=== PATIENT | female | born 1950 | race Caucasian/White ===

== ENCOUNTER 2020-03-04 14:19 | Outpatient (CLI) | payer MEDICARE, OTHER, SELFPAY ==
--- NOTE | ~2020-03-04 | MM_ITS ---
EXAMINATION: MM screening [facility] BI w she HISTORY: Screening mammogram TECHNIQUE: Craniocaudal and mediolateral oblique 3-D tomosynthesis images were obtained and synthetic 2-D images were generated. CAD analysis was submitted and interpreted. COMPARISON: 05/27/2015 bilateral digital screening mammogram BREAST PARENCHYMAL COMPOSITION: There are scattered areas of fibroglandular density. FINDINGS: There is no evidence of suspicious mass, calcification, or architectural distortion to sugg est malignancy in either breast. There has been no suspicious interval change. IMPRESSION: 1. No mammographic evidence of malignancy. 2. Recommend routine screening mammography in one year. BI-RADS Category 1: Negative Reviewed, dictated and finalized at location A.
== END 2020-03-04 14:20 | disposition home or self-care (01) ==
LOC: ANHIMG 14:36
DX: Z12.31 Encounter for screening mammogram for malignant neoplasm of breast (principal)
CPT/HCPCS: 77063; 77067

== ENCOUNTER 2021-03-10 16:28 | Outpatient (CLI) | payer MEDICARE, OTHER, SELFPAY ==
--- NOTE | ~2021-03-10 | MM_ITS ---
EXAMINATION: MM screening [facility] BI w she HISTORY: Screening TECHNIQUE: Craniocaudal and mediolateral oblique 3-D tomosynthesis images were obtained and synthetic 2-D images were generated. CAD analysis was submitted and interpreted. COMPARISON: Comparison to multiple prior studies sequentially, with oldest reviewed study dated 05/09. BREAST PARENCHYMAL COMPOSITION: There are scattered areas of fibroglandular density. FINDINGS: There is no evidence of suspicious mass, calcification, or architectural distortion to sugg est malignancy in either breast. There has been no suspicious interval change. IMPRESSION: 1. No mammographic evidence of malignancy. 2. Recommend routine screening mammography in one year. BI-RADS Category 1: Negative Reviewed, dictated and finalized at location A.
== END 2021-03-10 16:29 | disposition home or self-care (01) ==
LOC: ANHIMG 16:40
DX: Z12.31 Encounter for screening mammogram for malignant neoplasm of breast (principal)
CPT/HCPCS: 77063; 77067

== ENCOUNTER → 2022-04-14 14:51 | Outpatient (CLI) | payer MEDICARE, OTHER, SELFPAY ==
--- NOTE | ~2022-04-14 | MM_ITS ---
EXAMINATION: MM screening [facility] BI w she HISTORY: Screening mammogram TECHNIQUE: Craniocaudal and mediolateral oblique 3-D tomosynthesis images were obtained and synthetic 2-D images were generated. CAD analysis was submitted and interpreted. COMPARISON: 03/10/2021, 03/04/2020, 05/27/2015 bilateral screening mammogram examinations BREAST PARENCHYMAL COMPOSITION: There are scattered areas of fibroglandular density. FINDINGS: There is no evidence of suspicious mass, calcification, or architectural distortion to sugg est malignancy in either breast. There has been no suspicious interval change. IMPRESSION: 1. No mammographic evidence of malignancy. 2. Recommend routine screening mammography in one year. BI-RADS Category 1: Negative Reviewed, dictated and finalized at location A.
== END ==
DX: Z12.31 Encounter for screening mammogram for malignant neoplasm of breast (principal)
CPT/HCPCS: 77063; 77067

== ENCOUNTER 2022-11-09 09:21 | Inpatient (IN) | payer MEDICARE, OTHER, SELFPAY ==
[2022-11-09] VITALS (25 sets, daily range): BP systolic 140–167; BP diastolic 66–95; PULSE 63–114; RESP 5–20; TEMP 36.5–37.1; O2SAT 95–100; BMI 30.6
--- NOTE | ~2022-11-09 | XR_ITS ---
EXAMINATION: XR chest 2V DATE: 11/09/2022 10:13 INDICATION: Shortness of breath TECHNIQUE: PA and lateral views of the chest are obtained. COMPARISON: None available FINDINGS: The lungs are free of acute opacities. No pleural effusion or pneumothorax. The cardiomedia stinal silhouette is normal. There is moderate thoracic spondylosis. IMPRESSION: 1. No acute cardiopulmonary abnormality. Reviewed, dictated and finalized at location L.
--- NOTE | ~2022-11-09 | US_ITS ---
EXAMINATION: US venous doppler [facility] DATE: 11/09/2022 14:31 INDICATION: Right lower limb pain TECHNIQUE: Maxwell scale images without and with compression and Doppler images of the right lower extre mity veins were obtained. COMPARISON: None FINDINGS: The right common femoral vein, profunda femoral vein, femoral vein, popliteal vein, peronea l trunk, posterior tibial veins are patent. There is superficial venous thrombosis in the greater sap henous vein IMPRESSION: 1. Superficial venous thrombosis in the greater saphenous vein. No evidence of deep venous thrombosis . Reviewed, dictated and finalized at location L. IMPRESSION: 1. Superficial venous thrombosis in the greater saphenous vein. No evidence of deep venous thrombosis.
--- NOTE | ~2022-11-09 | CT_ITS ---
EXAMINATION: CTA chest PE protocol DATE: 11/09/2022 13:51 INDICATION: Left chest pain. Shortness of breath. TECHNIQUE: Computed tomography angiography (CTA) of the chest was performed with 100 mL Omnipaque-350 intravenous contrast timed to evaluate the pulmonary arteries. Coronal maximum intensity projection 3D-reconstructions were created by the technologist. Automated exposure control and iterative reconst ruction technique were employed. The dose-length product was 321.81 mGy-cm. COMPARISON: Chest 2 views 11/09/2022 FINDINGS: There is mild atelectasis bilaterally. No pleural effusion. The heart size is normal. No pe ricardial effusion. There are coronary artery calcifications. There is an acute pulmonary embolus in anterior segment left upper lobe. There are cysts in the liver measuring up to 3.8 cm. There is a gal lstone in the gallbladder. The gallbladder is distended. There is mild chronic anterior wedging of mu ltiple vertebral bodies. There are bridging endplate osteophytes at multiple levels in the spine, con sistent with diffuse idiopathic skeletal hyperostosis (DISH). IMPRESSION: 1. Acute pulmonary embolus in anterior segment left upper lobe. I called this result to Jackie osullivan. 2. Cholelithiasis. Gallbladder distention may be secondary to fasting or acute cholecystitis. Correla te with physical exam. Reviewed, dictated and finalized at location A. IMPRESSION: 1. Acute pulmonary embolus in anterior segment left upper lobe. I called this r esult to Jackie Barron. 2. Cholelithiasis. Gallbladder distention may be secondary to fasting or acute cholecystitis. Correlate with physical exam.
--- NOTE | 2022-11-09 09:33 | ECG_ITS ---
Measurements Intervals [place] Rate: 123 P: 157 IL: 108 QRS: -17 QRSD: 126 T: 79 QT: 346 QTc: 495 Interpretive Statements SINUS TACHYCARDIA WITH SHORT IL INTERVAL LEFT BUNDLE BRANCH BLOCK [120+ ms QRS DURATION, 80+ ms Q/S IN V1/V2, 85+ ms R IN I/aVL/V5/V6] NO PREVIOUS ECG AVAILABLE FOR COMPARISON Electronically Signed On 11-09-2022 16:05:01 CDT by Claire Mullins M.D.
--- NOTE | 2022-11-09 11:18 | ED.SOB ---
HPI - SOB/Dyspnea General Chief Complaint: Shortness of Breath/Dyspnea <Jackie Barron PA-C - Last Filed: 11/09/22 17:17> Stated Complaint: chest pain <JULIANNA Garcia Last Filed: 11/09/22 17:17> Time Seen by Provider: 11/09/22 11:15 <JULIANNA Garcia Last Filed: 11/09/22 17:17> Source: patient <JULIANNA Garcia Last Filed: 11/09/22 17:17> Mode of arrival: ambulatory <JULIANNA Garcia Last Filed: 11/09/22 17:17> Limitations: no limitations <JULIANNA Garcia Last Filed: 11/09/22 17:17> History of Present Illness HPI Narrative: Patient is a 72-year-old female who presents the ED with complaints of left sided chest pain. Patient reports she flew to and from [place] in the middle of October. She was diagnosed with COVID 19 upon returning from the trip. She developed pain and swelling in her left calf region afterwards and was diagnosed with superficial thrombophlebitis via US. She continued to have worsening pain and eventually worsening superficial thrombosis. She was placed on Xarelto approximately a week and a half ago. Today, patient reports she was walking outside when she suddenly developed pain in her left lower chest. She states it feels almost below her left breast. Pain constant and worse with deep breathing. She does feel mildly short of breath. She states she was told to return to the ED if she ever experience chest pain or difficulty breathing. Patient denies any recent fevers, cough, cold symptoms, abdominal pain, nausea, vomiting. Patient mentions a Hx of dvt after surgery several years ago and was on anticoagulation for 6 months at that time. She notes a FHx of blood clots as well. <JULIANNA Garcia Last Filed: 11/09/22 17:17> Related Data Home Medications: Home Medications Medication Instructions Recorded Confirmed amlodipine 5 mg tablet 5 mg PO HS 01/19/21 11/09/22 aspirin 81 mg tablet,delayed 81 mg PO DAILY 01/19/21 11/09/22 release atorvastatin 40 mg tablet (Lipitor) 40 mg PO HS 01/19/21 11/09/22 cinnamon bark 500 mg capsule 500 mg PO DAILY 01/19/21 11/09/22 coenzyme [id number] 100 mg-100 1 cap PO HS 01/19/21 11/09/22 unit capsule ezetimibe 10 mg tablet (Zetia) 10 mg PO HS 01/19/21 11/09/22 lisinopril 2.5 mg tablet 2.5 mg PO DAILY 01/19/21 11/09/22 multivitamin 1 tablet PO DAILY 01/19/21 11/09/22 terbinafine HCl 250 mg tablet 250 mg PO DAILY 01/19/21 11/09/22 cholecalciferol (vitamin D3) 125 125 mcg PO DAILY 12/07/21 11/09/22 mcg (5,000 unit) tablet cholecalciferol (vitamin D3) 25 25 mcg PO DAILY 12/07/21 11/09/22 mcg (1,000 unit) capsule tumeric 100 mg-roshan 150 mg-olive 1 cap PO Q12H 12/07/21 11/09/22 50 mg-oreg 150 mg-caprylate capsule <JULIANNA Garcia Last Filed: 11/09/22 17:17> Allergies/Adverse Reactions: Allergies Allergy/AdvReac Type Severity Reaction Status Date / Time No Known Allergies Allergy Verified 11/09/22 12:10 <JULIANNA Garcia Last Filed: 11/09/22 17:17> Review of Systems Review of Systems: CONSTITUTIONAL: Denies fever, chills, or sweats. ENT: Denies rhinorrhea, congestion, sore throat. CARDIOVASCULAR: See HPI. RESPIRATORY: See HPI. GASTROINTESTINAL: Denies abdominal pain, nausea, vomiting, or diarrhea. GENITOURINARY: Denies dysuria or hematuria. SKIN: Denies rash or itching. MUSCULOSKELETAL: See HPI. NEUROLOGIC: Denies headache, numbness, or weakness. <JULIANNA Garcia Last Filed: 11/09/22 17:17> All systems reviewed & are unremarkable except as noted in HPI and below <JULIANNA Garcia Filed: 11/09/22 17:17> [facility] Past Medical History Medical History: Medical History (Updated 11/09/22 @ 17:25 by Tawny Zazueta NP) Abnormality of heart beat left bbb Arthritis DVT (deep venous thrombosis) Effusion of knee Effusion, left knee High cholesterol History of intraoper
[2022-11-09 11:50] LABS: Basophils Percent Auto 0.7 % (0.2-1.2); Eosinophils Percent Auto 0.7 % (0-4.4); Hematocrit 38.8 % (37.0-47.0); Hemoglobin 13.1 g/dL (12.0-15.0); Immature Granulocyte Absolute 0.01 K/mm3 (0.00-0.031); Immature Granulocyte Percent A 0.2 % (0-0.5); Lymphocytes Absolute Auto 1.55 K/mm3 (0.9-3.2); Lymphocytes Percent Auto 28.5 % (18.3-44.2); Mean Corpuscular HGB Conc 33.8 g/dl (32-36); Mean Corpuscular Hemoglobin 31.2 pg (26-34); Mean Corpuscular Volume 92.4 fl (80-100); Mean Platelet Volume 9.7 fl (7.4-10.4); Monocytes Absolute Auto 0.6 K/mm3 (0.1-0.6); Neutrophils Absolute Auto 3.2 K/mm3 (1.3-6.7); Neutrophils Percent Auto 58.9 % (45.5-73.1); Platelet Count Result 329 k/mm3 (150-375); White Blood Count 5.4 K/mm3 (4.5-10.0)
[2022-11-09 12:00] LABS: INR 1.1; Prothrombin Time 13.7 Seconds (11.1-14.7)
[2022-11-09 12:01] LABS: Partial Thromboplastin Time 29.1 SECONDS (22.3-36.8)
[2022-11-09 12:02] LABS: Alanine Aminotransferase 20 U/L (6-35); Albumin Level 4.3 g/dL (3.5-5.1); Alkaline Phosphatase 78 U/L (38-126); Anion Gap 6 mmol/L (8-16); Aspartate Amino Transferase 25 U/L (14-36); Bilirubin,Total 0.6 mg/dL (0.2-1.3); Blood Urea Nitrogen 10 mg/dL (7-17); Calcium 9.2 mg/dL (8.4-10.2); Carbon Dioxide 27 mmol/L (22-30); Chloride 105 mmol/L (98-107); Estimated Glomerular Filt Rate > 60; Glucose 120 mg/dL (65-110); Potassium 3.6 mmol/L (3.4-5.0); Sodium 138 mmol/L (137-145)
[2022-11-09 12:13] LABS: Troponin I < 0.012 ng/mL (0.000-0.034)
[2022-11-09 15:41] LABS: Troponin I < 0.012 ng/mL (0.000-0.034)
[2022-11-09] MEDS: HEPARIN SODIUM 5,000 UNITS/ML VIAL 6000 UNITS IV PUSH (15:58)
[2022-11-09] MEDS: HEPARIN SOD/D5W 100 UNITS/ML 25,000 UNITS/250 ML BAG 14 UNITS IV CONT (16:00)
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
--- NOTE | 2022-11-09 18:00 | ADMGEN ---
This patient, Chelsea Azevedo, was admitted to Intensive Care Unit-1. Patient/family oriented to hospital policies and general routines including ID bracelet, bed and alarms, visiting hours, pain management, procedures, bathroom and other care routines, personal items, smoking policy, room service/diet, and visiting hours. Information on how to activate the Rapid Response Team has been discussed. Patient/Family are encouraged to report perceived risks to care and to ask questions if they do not understand what they are told or what they should do.
[2022-11-09 19:12] LABS: Troponin I < 0.012 ng/mL (0.000-0.034)
[2022-11-09] MEDS: EZETIMIBE 10 MG TABLET PO (21:26)
[2022-11-09] MEDS: ATORVASTATIN 40 MG TABLET PO (21:26)
[2022-11-09] MEDS: amLODIPine BESYLATE 5 MG TABLET PO (21:26)
[2022-11-10] VITALS (8 sets, daily range): BP systolic 126–147; BP diastolic 66–78; PULSE 62–122; RESP 14–18; TEMP 36.6–37.1; O2SAT 91–99
--- NOTE | 2022-11-10 | ECHO_ITS ---
Patient Info Name: Chelsea Azevedo Age: 72 years : 1950 Gender: Female Ht: 68 in Wt: 206 lbs BSA: 2.15 m2 HR: 64 bpm BP: 140 / 66 mmHg Heart Rhythm: Sinus Rhythm Technical Quality: Fair Exam Date: 11/10/2022 7:41 AM Exam Location: [facility] Pulmonary Patient Status: Inpatient Admit Date: 11/10/2022 Staff Ordering Physician: Tawny Zazueta NP Manager Grant: Iona Banda RDCS Attending Provider: Rachelle Lee MD Referring Physician: Marbin STARR; Exam Type: CA echo dop color flow w con Study Info Indications - PE Complete two-dimensional, color flow and Doppler transthoracic echocardiogram is performed with contrast to opacify the left ventricle and to improve the deliniation of the left ventricle endocardial borders. Contrast/Agitated Saline Contrast/Ag. Saline: Definity Amount: 3.00 ml Administered By: Iona Banda RDCS Existing IV Access: Yes IV Access Condition: patent with no signs of infiltration Summary 1. Left ventricular chamber dimension is normal. 2. Left ventricular systolic function is normal, estimated at 55-60%. 3. There is mildly increased left ventricular wall thickness. 4. Left ventricular septal wall motion is abnormal with septal motion related to bundle branch block. 5. The left ventricular diastolic function is grade I diastolic dysfunction. 6. Left atrial chamber dimension is mildly enlarged. 7. There is mild mitral valve regurgitation. 8. There is mild tricuspid valve regurgitation. 9. There is mild pulmonic regurgitation. Left Ventricle Left ventricular chamber dimension is normal. Left ventricular systolic function is normal, estimated at 55-60%. There is mildly increased left ventricular wall thickness. Left ventricular septal wall motion is abnormal with septal motion related to bundle branch block. The left ventricular diastolic function is grade I diastolic dysfunction. Right Ventricle Right ventricular chamber dimension is normal. Right ventricular systolic function is normal. Left Atria Left atrial chamber dimension is mildly enlarged. Right Atria Right atrial chamber dimension is normal. Atrial Septum Intact interatrial septum visualized by color flow imaging. Aortic Valve The aortic valve is trileaflet. There is mild aortic valve sclerosis. There is no aortic valve stenosis. There is trace aortic valve regurgitation. Pulmonic Valve The pulmonic valve is normal. There is no pulmonic valve stenosis. There is mild pulmonic regurgitation. Mitral Valve The mitral valve has normal leaflets. There is no mitral valve stenosis. There is mild mitral valve regurgitation. Tricuspid Valve The tricuspid valve leaflets are normal. There is no significant tricuspid valve stenosis. There is mild tricuspid valve regurgitation. No pulmonary hypertension, estimated pulmonary arterial systolic pressure is 34 mmHg. Pericardium/Pleural The pericardium appears normal. There is trivial pericardial effusion. Inferior Vena Cava Normal inferior vena cava with >50% collapse upon inspiration consistent with normal right atrial pressure, 10 mmHg. Aorta The aortic root size at the sinus of Valsalva is normal. The prox ascending aorta size is normal. Left Ventricular Outflow Tract Name Value Normal
[2022-11-10 04:36] LABS: Basophils Percent Auto 0.5 % (0.2-1.2); Eosinophils Absolute Auto 0.1 K/mm3 (0-0.3); Eosinophils Percent Auto 1.2 % (0-4.4); Hematocrit 38.9 % (37.0-47.0); Hemoglobin 13.2 g/dL (12.0-15.0); Immature Granulocyte Absolute 0.02 K/mm3 (0.00-0.031); Immature Granulocyte Percent A 0.3 % (0-0.5); Lymphocytes Absolute Auto 1.97 K/mm3 (0.9-3.2); Lymphocytes Percent Auto 34.4 % (18.3-44.2); Mean Corpuscular HGB Conc 33.9 g/dl (32-36); Mean Corpuscular Hemoglobin 31.8 pg (26-34); Mean Corpuscular Volume 93.7 fl (80-100); Mean Platelet Volume 9.5 fl (7.4-10.4); Monocytes Absolute Auto 0.7 K/mm3 (0.1-0.6); Monocytes Percent Auto 12.9 % (2.6-8.5); Neutrophils Absolute Auto 2.9 K/mm3 (1.3-6.7); Neutrophils Percent Auto 50.7 % (45.5-73.1); Platelet Count Result 317 k/mm3 (150-375); Red Blood Count 4.15 M/mm3 (4.2-5.4); Red Cell Distribution Width 12.3 % (11.5-14.5); White Blood Count 5.7 K/mm3 (4.5-10.0)
[2022-11-10 04:46] LABS: Alanine Aminotransferase 19 U/L (6-35); Alkaline Phosphatase 70 U/L (38-126); Anion Gap 3 mmol/L (8-16); Aspartate Amino Transferase 23 U/L (14-36); Bilirubin,Total 0.6 mg/dL (0.2-1.3); Blood Urea Nitrogen 10 mg/dL (7-17); Calcium 8.7 mg/dL (8.4-10.2); Carbon Dioxide 31 mmol/L (22-30); Chloride 104 mmol/L (98-107); Estimated CRCL calculation 102 ml/min; Estimated Glomerular Filt Rate > 60; Glucose 135 mg/dL (65-110); Magnesium 2.2 mg/dL (1.6-2.3); Potassium 3.5 mmol/L (3.4-5.0); Sodium 138 mmol/L (137-145)
[2022-11-10 04:47] LABS: Partial Thromboplastin Time 74.9 SECONDS (22.3-36.8)
[2022-11-10 04:52] LABS: Lactic Acid Reflex 0.7 mmol/L (0.7-2.0)
[2022-11-10 05:55] LABS: Thyroid Stimulating Hormone Reflex 0.881 uIU/mL (0.465-4.68)
[2022-11-10] MEDS: PERFLUTREN LIPID MICROSPHERES 1.5 ML VIAL DILUTED TO 10 ML TOTAL VOLUME IV PUSH (08:15)
[2022-11-10] MEDS: lisinopriL 2.5 MG TABLET PO (09:08)
[2022-11-10] MEDS: CHOLECALCIFEROL 1,000 UNITS TABLET 1000 UNITS PO (09:08)
[2022-11-10] MEDS: MULTIVITAMINS THERAPEUTIC TAB (*BKC) 1 TABLET PO (09:08)
[2022-11-10] MEDS: TERBINAFINE HCL 250 MG TABLET PO (09:08)
--- NOTE | 2022-11-10 09:39 | PC.NURSE ---
Pt reports aspirin was stopped a week and a half ago. Dr. Duque made aware. Aspirin stopped.
[2022-11-10 11:10] LABS: Partial Thromboplastin Time 28.6 SECONDS (22.3-36.8)
--- NOTE | 2022-11-10 11:12 | IVDEFINITY ---
Prior to administration of IV Definity the patient was educated on the risks and benefits of the imaging enhancing agent including potential adverse side effects. The patient verbalized understanding. Allergies were verified. No exclusion criteria were identified and at least one of the following inclusion criteria were met: 1) physician request, 2) patient technically difficult to image (per the [place] [employer]chocardi[employer] guidelines of two or more segments not discernable within the apical view), or 3) questionable left ventricular function. ?
--- NOTE | 2022-11-25 07:26 | PM.DS ---
DS: Admitting Diagnosis Discharge Date 11/10/22 Admitting Diagnosis PE DS: Discharge Diagnosis Discharge Diagnosis (1) Pulmonary embolism: Qualifiers: Acute cor pulmonale presence: without acute cor pulmonale Chronicity: acute Pulmonary embolism type: unspecified Qualified Code(s): I26.99 - Other pulmonary embolism without acute cor pulmonale Code(s): I26.99 - Other pulmonary embolism without acute cor pulmonale Status: Acute Assessment and Plan: The patient is currently on a heparin drip. The patient had been on Xarelto for her superficial venous thrombosis in her legs. Patient's repeat ultrasound shows superficial venous thrombosis Hematology has been consulted. An echo has been ordered. (2) Superficial thrombophlebitis of right leg: Code(s): I80.01 - Phlebitis and thrombophlebitis of superficial vessels of right lower extremity Status: Acute Assessment and Plan: The patient previously was started on Xarelto and and only been on it again have when she developed a PE. The patient is currently on a heparin drip. (3) Hypertension: Code(s): I10 - Essential (primary) hypertension Status: Acute Assessment and Plan: Continue with amlodipine Continue with lisinopril (4) High cholesterol: Code(s): E78.00 - Pure hypercholesterolemia, unspecified Status: Acute Assessment and Plan: Continue with atorvastatin and Zetia DS: Summary Hospital Course Hospital Course: Patient was admitted for PE, this is likely related to her prior event a week or 2 ago. Will resume her anticoagulation she can be discharged. From a cardiorespiratory standpoint she is otherwise stable Time Spent with Patient Time attestation: Total time spent providing and/or coordinating discharge services: Exam Const: General: cooperative, healthy appearing, comfortable, no acute distress, well developed, awake, Physically active, average body habitus and well nourished Nutritional Appearance: average body habitus and well nourished Orientation/consciousness: oriented to person, oriented to place, oriented to time and patient oriented x3 Limitations: no limitations HENMT: Head: normal to inspection, No palpable skull fracture present, normocephalic and atraumatic Ears: hearing grossly normal bilaterally and external ears normal Face/Nose/Sinus: Normal external nose present and Normal nares present Eyes: General: appearance normal, both eyes and all related structures Alignment and Position: alignment normal Periorbital: periorbital findings normal Eyelids: eyelids normal Sclera: sclerae normal Pupils: Equal, round and reactive pupils present EOM: EOMs intact bilaterally Neck: Neck: normal visual inspection, full ROM, no lymphadenopathy, trachea midline and supple Chest: Chest palpation & inspection: normal inspection of the chest Resp: Effort & Inspection: normal respiratory effort Auscultation: clear to auscultation bilaterally Cardio: Palpation: normal PMI Rate: tachycardic Rhythm: regular rhythm Heart sounds: S1 normal heart sound present and S2 normal heart sound present Peripheral pulses: Peripheral pulses 2+ throughout GI: Inspection: normal to inspection Auscultation: normal bowel sounds Rectal Exam: deferred Back/Spine/Pelvis: Cervical Spine: cervical ROM normal Skin: General skin exam: normal color Lesions: no lesions Rashes: no rashes Trauma: no lacerations or abrasions Wounds: no wounds Hair: normal Nails: normal Neuro: General: oriented to person, oriented to place, oriented to time and patient oriented x3 Cranial nerves: Yes Equal, round and reactive pupils present and Yes Normal hearing present Cognition (Neuro): normal cognition Speech: normal speech Gait exam (Neuro): Normal gait present Motor exam (neuro): 5/5 motor strength present throughout Sensory Exam: normal sensation Extrem: General: normal to inspection Right upper extremi
== END 2022-11-10 15:00 | disposition home or self-care (01) | DRG 176 ==
LOC: ANHED 11:44 → ANHICU 16:38
PROVIDERS: General Practice; Internal Medicine; Nurse Practitioner; Admitting Provider Internal Medicine; Emergency Provider Physician Assistant; Visit Provider Chiropractor
DX: I26.99 Other pulmonary embolism without acute cor pulmonale (principal); I80.01 Phlebitis and thrombophlebitis of superficial vessels of right lower extremity; I10 Essential (primary) hypertension; E78.00 Pure hypercholesterolemia, unspecified; M19.90 Unspecified osteoarthritis, unspecified site; I44.7 Left bundle-branch block, unspecified; Z86.16 Personal history of COVID-19; Z79.82 Long term (current) use of aspirin; Z90.710 Acquired absence of both cervix and uterus; Z90.722 Acquired absence of ovaries, bilateral
CPT/HCPCS: 36415; 71046; 71275; 80053; 83605; 83735; 84443; 84484; 85025; 85610; 85730; 93005; 93970; 96374; 99285; A9270; C8929; G0378; J1644; Q9957; Q9967

== ENCOUNTER 2022-11-29 18:08 | Emergency (ER) | payer MEDICARE, OTHER, SELFPAY ==
--- NOTE | ~2022-11-29 | XR_ITS ---
EXAM: XR knee RT min 4V DATE: 11/29/2022 19:25 HISTORY: pain TO POSTERIOR KNEE . COMPARISON: 09/23/2022, 09/07/2021. FINDINGS: Normal mineralization. No fracture or dislocation. No lytic or blastic lesion. Tricompartm ental osteoarthritis, severe in the medial compartment. No erosion or periosteal change. Soft tissues within normal limits. Moderate volume joint fluid. IMPRESSION: No acute osseous finding in the right knee. Moderate right knee joint effusion. Reviewed, dictated and finalized at location K. IMPRESSION: No acute osseous finding in the right knee. Moderate right knee gilmra nt effusion.
[2022-11-29 18:10] VITALS: BP 142/87; PULSE 112; RESP 18; TEMP 36.3; O2SAT 98
--- NOTE | 2022-11-29 19:10 | ED.EXTPRO ---
HPI - Extremity Problem General Chief complaint: Extremity Problem,Nontraumatic Stated complaint: pain behind right knee- hx of blood clots Time Seen by Provider: 11/29/22 19:00 Source: patient and RN notes reviewed Mode of arrival: ambulatory Limitations: no limitations History of Present Illness HPI Narrative: This is a 72 year old female with recent diagnosis of Pulmonary emboli and superficial thrombophlebitis 20 days ago who presents for evaluation of right knee pain. Patient reports she noticed pain behind her right knee since Tuesday. She reports she has been trying to walk 3045 minutes a day since her PE diagnosis. Her daughter noticed her limping on due to aching pain in right leg. She reports pain seems to be located more behind her right knee. She states today she felt behind her knee today and she felt squishy swollen area behing her knee. She denies any injury. She denies any pain. She denies chest pain or shortness of breath. she has been taking Xarelto 15 mg BID since her diagnosis. Related Data Home Medications Medication Instructions Recorded Confirmed amlodipine 5 mg tablet 5 mg PO HS 01/19/21 11/09/22 aspirin 81 mg tablet,delayed 81 mg PO DAILY 01/19/21 11/09/22 release atorvastatin 40 mg tablet (Lipitor) 40 mg PO HS 01/19/21 11/09/22 cinnamon bark 500 mg capsule 500 mg PO DAILY 01/19/21 11/09/22 coenzyme [id number] E 100 mg-100 1 cap PO HS 01/19/21 11/09/22 unit capsule ezetimibe 10 mg tablet (Zetia) 10 mg PO HS 01/19/21 11/09/22 lisinopril 2.5 mg tablet 2.5 mg PO DAILY 01/19/21 11/09/22 multivitamin 1 tablet PO DAILY 01/19/21 11/09/22 terbinafine HCl 250 mg tablet 250 mg PO DAILY 01/19/21 11/09/22 cholecalciferol (vitamin D3) 125 125 mcg PO DAILY 12/07/21 11/09/22 mcg (5,000 unit) tablet cholecalciferol (vitamin D3) 25 25 mcg PO DAILY 12/07/21 11/09/22 mcg (1,000 unit) capsule tumeric 100 mg-roshan 150 mg-olive 1 cap PO Q12H 12/07/21 11/09/22 50 mg-oreg 150 mg-caprylate capsule Allergies Allergy/AdvReac Type Severity Reaction Status Date / Time No Known Allergies Allergy Verified 11/29/22 18:57 Review of Systems Constitutional: Constitutional: Denies weakness Cardiovascular: Cardiovascular: Denies syncope, Denies rapid heart rate, Denies irregular heart rhythm, Denies leg edema and Denies dyspnea Respiratory: Respiratory: Denies chest congestion, Denies hemoptysis, Denies excessive phlegm production and Denies dyspnea Gastrointestinal: Gastrointestinal: Denies abdominal pain, Denies hematochezia, Denies diarrhea and Denies vomiting Genitourinary: Genitourinary: Denies hematuria and Denies dysuria Musculoskeletal: Musculoskeletal: Denies joint swelling, Denies loss of height and Denies muscle weakness Neurologic: Denies syncope, Denies focal weakness and Denies weakness PMFSH Past Medical History Medical History Abnormality of heart beat left bbb Arthritis DVT (deep venous thrombosis) Effusion of knee Effusion, left knee High cholesterol History of intraoperative complication of surgical procedure Hypertension LBBB (left bundle branch block) Left knee DJD Left knee pain Right knee DJD Surgical History Surgical History H/O tubal ligation History of bilateral oophorectomies History of radical hysterectomy Family History Family History Father Pulmonary emboli Sibling Pulmonary emboli Sibling High cholesterol Pulmonary emboli Other Arthritis Family history of cardiovascular disease Hypertension Social History Social History Social History: The patient has 2 children and lives with her . 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
[2022-11-29 19:35] VITALS: BP 135/92; PULSE 118; RESP 16; O2SAT 99
[2022-11-29 19:43] LABS: Basophils Percent Auto 0.7 % (0.2-1.2); Eosinophils Absolute Auto 0.1 K/mm3 (0-0.3); Eosinophils Percent Auto 1.5 % (0-4.4); Hematocrit 39.6 % (37.0-47.0); Hemoglobin 13.2 g/dL (12.0-15.0); Immature Granulocyte Absolute 0.02 K/mm3 (0.00-0.031); Immature Granulocyte Percent A 0.3 % (0-0.5); Lymphocytes Absolute Auto 1.98 K/mm3 (0.9-3.2); Lymphocytes Percent Auto 32.4 % (18.3-44.2); Mean Corpuscular HGB Conc 33.3 g/dl (32-36); Mean Corpuscular Hemoglobin 31.1 pg (26-34); Mean Corpuscular Volume 93.4 fl (80-100); Mean Platelet Volume 9.9 fl (7.4-10.4); Monocytes Absolute Auto 0.7 K/mm3 (0.1-0.6); Monocytes Percent Auto 12.1 % (2.6-8.5); Neutrophils Absolute Auto 3.2 K/mm3 (1.3-6.7); Platelet Count Result 218 k/mm3 (150-375); Red Blood Count 4.24 M/mm3 (4.2-5.4); Red Cell Distribution Width 12.9 % (11.5-14.5); White Blood Count 6.1 K/mm3 (4.5-10.0)
--- NOTE | 2022-11-29 19:49 | ECG_ITS ---
Measurements Intervals [place] Rate: 80 P: 21 IL: 185 QRS: -30 QRSD: 129 T: 97 QT: 373 QTc: 432 Interpretive Statements SINUS RHYTHM ELECTRONIC VENTRICULAR PACEMAKER ATYPICAL ECG NO PREVIOUS ECG AVAILABLE FOR COMPARISON Electronically Signed On 11-30-2022 14:36:11 CDT by Samir Warner M.D.
[2022-11-29 19:51] LABS: INR 1.3; Prothrombin Time 15.8 Seconds (11.1-14.7)
[2022-11-29 19:52] LABS: Partial Thromboplastin Time 31.3 SECONDS (22.3-36.8)
[2022-11-29 20:00] LABS: Alanine Aminotransferase 21 U/L (6-35); Albumin Level 4.5 g/dL (3.5-5.1); Alkaline Phosphatase 65 U/L (38-126); Anion Gap 7 mmol/L (8-16); Aspartate Amino Transferase 24 U/L (14-36); Bilirubin,Total 0.4 mg/dL (0.2-1.3); Blood Urea Nitrogen 16 mg/dL (7-17); Calcium 9.4 mg/dL (8.4-10.2); Carbon Dioxide 30 mmol/L (22-30); Chloride 102 mmol/L (98-107); Estimated CRCL calculation 86 ml/min; Estimated Glomerular Filt Rate > 60; Glucose 103 mg/dL (65-110); Potassium 4.1 mmol/L (3.4-5.0); Sodium 139 mmol/L (137-145)
[2022-11-29 20:47] VITALS: BP 140/79; PULSE 82; RESP 13; O2SAT 98
== END 2022-11-29 20:48 | disposition home or self-care (01) ==
PROVIDERS: Emergency Provider General Practice
DX: M25.461 Effusion, right knee (principal); M79.604 Pain in right leg; M19.90 Unspecified osteoarthritis, unspecified site; I10 Essential (primary) hypertension; E78.5 Hyperlipidemia, unspecified
CPT/HCPCS: 36415; 73564; 80053; 85025; 85610; 85730; 93005; 99283

== ENCOUNTER 2022-11-30 07:09 | Outpatient (CLI) | payer MEDICARE, OTHER, SELFPAY ==
--- NOTE | ~2022-11-30 | US_ITS ---
EXAMINATION: US venous doppler LE RT DATE: 11/30/2022 08:01 INDICATION: Right lower limb pain. TECHNIQUE: Grayscale ultrasound images without and with compression and Doppler ultrasound images of the right lower extremity veins were obtained. COMPARISON: Ultrasound 11/09/2022 FINDINGS: The visualized portions of right common femoral vein, profunda (deep) femoral vein, femoral vein, pop liteal vein, peroneal veins, and posterior tibial veins are patent. There is thrombus in greater saph enous vein. IMPRESSION: 1. No deep venous thrombosis. 2. Superficial vein thrombosis involving right greater saphenous vein again seen. Reviewed, dictated and finalized at location A. IMPRESSION: 1. No deep venous thrombosis. 2. Superficial vein thrombosis involving right greater saphenous vein again see n.
== END 2022-11-30 07:10 | disposition home or self-care (01) ==
PROVIDERS: Visit Provider General Practice
DX: I82.811 Embolism and thrombosis of superficial veins of right lower extremity (principal)
CPT/HCPCS: 93971

== ENCOUNTER 2023-03-03 13:59 | Outpatient (CLI) | payer MEDICARE, OTHER, SELFPAY ==
[2023-03-07 07:31] LABS: Homocysteine 10.3 umol/L (<10.4)
[2023-03-07 22:33] LABS: Antithrombin III Activity 126 % normal (80-135)
[2023-03-08 17:23] LABS: Protein S Antigen, Free 95 % normal (50-147)
[2023-03-09 03:50] LABS: Lupus dRVVT Screen 32 sec (<=45); PTT-LA Screen 30 sec (<=40)
[2023-03-11 13:22] LABS: Factor V (Leiden) Mutation NEGATIVE
== END 2023-03-03 14:00 | disposition home or self-care (01) ==
LOC: ANHLAB 14:01
PROVIDERS: Visit Provider Internal Medicine Hematology & Oncology
DX: I26.99 Other pulmonary embolism without acute cor pulmonale (principal); Z79.01 Long term (current) use of anticoagulants
CPT/HCPCS: 36415; 81240; 81241; 83090; 85300; 85303; 85306; 85613; 85730; 86146

== ENCOUNTER → 2023-06-14 11:27 | Outpatient (CLI) | payer MEDICARE, OTHER, SELFPAY ==
--- NOTE | ~2023-06-14 | MM_ITS ---
EXAMINATION: MM screening suzy BI w she HISTORY: Screening TECHNIQUE: Craniocaudal and mediolateral oblique 3-D tomosynthesis images were obtained and synthetic 2-D images were generated. CAD analysis was submitted and interpreted. COMPARISON: Comparison to multiple prior studies sequentially, with oldest reviewed study dated 03/04. BREAST PARENCHYMAL COMPOSITION: There are scattered areas of fibroglandular density. FINDINGS: There is a developing asymmetry in the upper outer quadrant of the right breast, middle thi rd. The left breast is stable without evidence for malignancy. IMPRESSION: 1. Developing right breast asymmetry, upper outer quadrant of the middle third. 2. Additional spot compression and mediolateral views with possible follow-up breast ultrasound recom mended. BI-RADS Category 0: Incomplete: Needs additional imaging evaluation. Reviewed, dictated and finalized at location A. HASING MANAGER IMPRESSION: 1. Developing right breast asymmetry, upper outer quadrant of the middle third. 2. Additional spot compression and mediolateral views with possible follow-up b reast ultrasound recommended. BI-RADS Category 0: Incomplete: Needs additional imaging evaluation.
== END ==
DX: Z12.31 Encounter for screening mammogram for malignant neoplasm of breast (principal); R92.8 Other abnormal and inconclusive findings on diagnostic imaging of breast
CPT/HCPCS: 77063; 77067

== ENCOUNTER → 2023-07-13 10:35 | Outpatient (CLI) | payer MEDICARE, OTHER, SELFPAY ==
--- NOTE | ~2023-07-13 | MMUS_ITS ---
EXAMINATION: MM diagnostic suzy RT w she, US breast RT limited HISTORY: Possible right breast mass on screening mammogram TECHNIQUE: Additional 3-D tomosynthesis images of the right breast were performed and synthetic 2-D i mages were generated. CAD analysis was submitted and interpreted. High resolution limited right breas t ultrasound was performed. COMPARISON: 06/14/2023, 04/14/2022, 03/10/2021, 03/04/2021 FINDINGS: MAMMOGRAPHIC FINDINGS: There is a 5 mm irregular high density mass with spiculated margins in the middle third of the upper outer quadrant of the breast at the 11:00 location, 7 cm from the nipple. There is associated archite ctural distortion. ULTRASOUND: There is a 5 mm irregular, not parallel, hypoechoic mass with spiculated margins at the 10:00 locatio n, 5 cm from the nipple which demonstrates posterior acoustical shadowing and internal vascularity. IMPRESSION: 1. Suspicious right breast mass. 2. Ultrasound-guided biopsy is recommended. BI-RADS category 4, suspicious findings. Reviewed, dictated and finalized at location A. TEACHER IMPRESSION: 1. Suspicious right breast mass. 2. Ultrasound-guided biopsy is recommended. BI-RADS category 4, suspicious findings.
== END ==
DX: R92.8 Other abnormal and inconclusive findings on diagnostic imaging of breast (principal)
CPT/HCPCS: 76642; 77061; 77065; G0279